=== PATIENT | male | born 1965 | race Caucasian/White ===

== ENCOUNTER 2020-04-28 15:04 | Outpatient (CLI) | payer MEDICARE, SELFPAY ==
--- NOTE | 2020-04-28 15:09 | XR_ITS ---
WS: [id number] LUMBAR SPINE FLEXION AND EXTENSION TECHNIQUE: 3 views of the lumbar spine: Lateral neutral, flexion, and extension views. CLINICAL INFORMATION: LOW BACK PAIN, COMMENT ON PRESENCE OR ABSENCE OF SPINAL INST COMPARISON: None. FINDINGS: Normal lumbar alignment on the neutral view. No instability on the flexion and extension views. Disc space narrowing worse L5-S1. Moderate facet a rthropathy L5-S1. Aortic calcification. No spinal hardware. XR/XR lumbar spine f/e only [id number] IMPRESSION: No instability on flexion-extension
== END 2020-04-28 15:05 | disposition home or self-care (01) ==
LOC: RADWPI 15:07
PROVIDERS: Family Provider Nurse Practitioner Family; PCP Nurse Practitioner Family; Visit Provider Nurse Practitioner
DX: M54.5 Low back pain (principal)
CPT/HCPCS: 72120

== ENCOUNTER 2020-04-30 14:54 | Outpatient (CLI) | payer MEDICARE, SELFPAY ==
--- NOTE | 2020-04-30 14:58 | MR_ITS ---
WS: [id number] MRI LUMBAR SPINE NONCONTRAST TECHNIQUE: Sagittal T1, T2 and STIR imaging. Axial T1 and T2 imaging. CLINICAL INFORMATION: LOW BACK PAIN COMPARISON: None. FINDINGS: Mild lumbar curve. No acute compression. No high-grade central canal stenosis. Mild disc bulging L4-L 5 and L5-S1. L1-L2: No significant disc bulging. Mild facet arthropathy. L2-L3: No significant disc bulging. Mild facet arthropathy. L3-L4: Minimal annular bulging. Mild facet arthropathy. Spinal canal and foramen are patent. L4-L5: Shallow broad-based left pericentral protrusion with a small annular fissure. Narrowing of the subarticular recess bilaterally left greater than right. Impingement traversing left L5 nerve root. Mild right and no significant left foraminal narrowing. Mild central canal stenosis. Moderate facet a rthropathy. L5-S1: Mild annular bulging with slight effacement of the ventral thecal sac. Mild facet arthropathy. Spinal canal and foramen are patent. Partially visualized T2 hyperintense lesion left kidney may represent renal cysts partially evaluated . This measures 1.6 cm can be followed up with ultrasound. Additional smaller bilateral presumed carola l cysts. MR/MR lumbar spine wo con* [id number] IMPRESSION: 1. Mild lumbar curve. No acute compression. No high-grade central canal stenos is. 2. Shallow left pericentral protrusion L4-5 with mild central canal stenosis a nd impingement traversing left L5 nerve root. Recommend correlation for left L5 nerve root symptoms. 3. Mild annular bulging L5-S1 with slight effacement of ventral thecal sac. No significant nerve root impingement. 4. Mild right L4-5 foraminal narrowing. 5. Moderate facet arthropathy L3-L5. 6. 1.6 cm left renal lesion may represent renal cysts but indeterminant and ca n be followed up with ultrasound. Additional smaller bilateral renal cysts.
== END 2020-04-30 14:55 | disposition home or self-care (01) ==
LOC: RADWPI 14:57
PROVIDERS: Family Provider Nurse Practitioner Family; PCP Nurse Practitioner Family; Visit Provider Nurse Practitioner
DX: N28.9 Disorder of kidney and ureter, unspecified (principal); M47.816 Spondylosis without myelopathy or radiculopathy, lumbar region; M48.061 Spinal stenosis, lumbar region without neurogenic claudication; M51.26 Other intervertebral disc displacement, lumbar region
CPT/HCPCS: 72148

== ENCOUNTER 2020-05-26 14:43 | Outpatient (CLI) | payer MEDICARE, SELFPAY ==
--- NOTE | 2020-05-26 14:49 | US_ITS ---
WS: [id number] RENAL ULTRASOUND HISTORY: CYST OF KIDNEY COMPARISON: CT 12/16/2017 TECHNIQUE: 2-D and color Doppler imaging of the kidney submitted. Right kidney: 11.8 cm x 5.0 cm x 5.4 cm. Normal echogenicity with no hydronephrosis or mass. Left kidney: 11.0 cm x 5.1 cm x 5.8 cm. Small cysts in the upper and lower poles of the LEFT kidney. The largest measures 1.3 cm in the super ior kidney. These were both identified on the prior CT of 12/16/2017. No solid mass. Aorta: Normal. Urinary Bladder: Normal urinary bladder. US/US renal BI* [id number] IMPRESSION: 1. No solid mass or obstruction. 2. Long-term stability of cortical cysts LEFT kidney.
== END 2020-05-26 14:44 | disposition home or self-care (01) ==
LOC: RAD 14:47
PROVIDERS: PCP Nurse Practitioner Family; Visit Provider Anesthesiology Pain Medicine
DX: N28.1 Cyst of kidney, acquired (principal)
CPT/HCPCS: 76770

== ENCOUNTER 2022-12-22 13:42 | Emergency (ER) | payer MEDICARE, SELFPAY ==
[2022-12-22 13:58] VITALS: BP 117/82; PULSE 122; TEMP 35.8; O2SAT 96; BMI 27.0
--- NOTE | 2022-12-22 14:42 | CT_ITS ---
WS: [id number] CT CERVICAL SPINE HISTORY: trauma TECHNIQUE: Contiguous 2.5 mm axial imaging performed through the entire cervical spine. Sagittal and coronal reformats also performed. All CT scans at [facility] use at least one of these dose o ptimization techniques: automated exposure control; mA and/or kV adjustment per patient size (include s targeted exams where dose is matched to clinical indication); or iterative reconstruction. DLP: 207.67 mGy.cm COMPARISON: None available. Motion artifact in the lower cervical spine and upper thoracic spine. No fractures. Disc spaces are moderately narrowed throughout the cervical spine with endplate osteoph ytes. The lateral masses of C1 and C2 are aligned. Odontoid is intact. C2-C3: Small central disc protrusion. No stenosis. C3-C4: Mild facet arthritis and hypertrophic osteophytes. Moderate RIGHT and mild LEFT foraminal sten osis. C4-C5: Osteophytic ridging encroaching upon the ventral thecal sac. Moderate RIGHT foraminal stenosis . C5-C6: Moderate osteophytic ridging around the vertebral bodies. Moderate RIGHT and mild LEFT foramin al stenosis. Small central disc protrusion. C6-C7: Mild osteophytic ridging. Moderate to severe bilateral foraminal stenosis and mild central deniz nosis. C7-T1: Motion artifact. Motion artifact at the lung apices. Mild apical pleural thickening. CT/CT cervical spin wo con* [id number] IMPRESSION: 1. No acute cervical spine fracture or subluxation. 2. Facet joint arthritis and osteophytic vertebral body ridging.
--- NOTE | 2022-12-22 14:42 | XR_ITS ---
WS: [id number] Left shoulder, 3 views, 12/22/2022 Clinical Data: fall Comparison: None. Findings: No fractures or dislocations are seen. The AC joint is normal. The adjacent left clavicle, left scapu la and ribs are normal. The soft tissues are unremarkable. XR/XR shoulder LT min 2V* [id number] Impression: Negative left shoulder.
--- NOTE | 2022-12-22 14:42 | CT_ITS ---
WS: [id number] CT HEAD NONCONTRAST HISTORY: trauma TECHNIQUE: Contiguous axial imaging performed through the brain in 2.5 mm imaging. Bone and soft tiss ue windows. Sagittal and coronal reformats reviewed. All CT scans at [facility] use at least one of these dose optimization techniques: automated exposure control; mA and/or kV adjustment per pa tient size (includes targeted exams where dose is matched to clinical indication); or iterative recon struction. DLP: 1122.18 mGy.cm COMPARISON: None available. No acute intracranial hemorrhage, midline shift or mass effect. Mild atrophy and mild small vessel ischemic disease and volume loss. Ventricles: Normal size with no hydrocephalus. No inferior displacement of the cerebellar tonsils. Paranasal sinuses: As visualized are clear. Mastoid air cells: Well pneumatized. Calvarium and scalp: Skull is intact with no soft tissue edema or swelling. CT/CT head wo con* [id number] IMPRESSION: 1. No acute intracranial hemorrhage or edema. 2. Mild atrophy and small vessel ischemic disease.
--- NOTE | 2022-12-22 14:43 | W.ED.ALCOHOL ---
HPI - Alcohol General: Chief Complaint: General Medical Stated Complaint: ETOH ,fall Time Seen by Provider: 12/22/22 13:50 Source: patient and family Mode of arrival: EMS Limitations: other (intoxicated) History of Present Illness: Patient is a 57-year-old male who presents to ED today along with his sister for evaluation following a fall and alcohol intoxication. Sister states they were unable to get a hold of patient over the past 3 days and when they showed up to his house she states he fell getting to the door. He was clearly intoxicated thus sister brought him to the ED for evaluation. MD complaint: alcohol intoxication Last drink: Hours (ago) Chronic alcohol use: Yes Recent trauma: Yes Associated symptoms: Deny abdominal pain Treatments prior to arrival: none Review of Systems Const: Denies: fever(s) Eyes: Denies: change in vision or blurry vision Card: Denies: chest pain Resp: Denies: dyspnea GI: Denies: abdominal pain Musc: Reports: neck pain and joint pain (L shoulder); Denies: back pain, extremity pain, extremity swelling, joint swelling or joint redness Skin/Breast: Reports: other (facial abrasions) Neuro: Denies: headache(s), numbness in extremities, weakness in extremities, sensory changes, difficulty walking, dizziness or confusion Physical Exam Const: COMMON NORMALS: average body habitus, patient oriented x3, alert and well nourished GENERAL APPEARANCE: cooperative and odor of alcohol detected ORIENTATION/CONSCIOUSNESS: Yes awake, Yes oriented to person, Yes oriented to place and Yes oriented to time OTHER: intoxicated but answers all questions appropriately HENMT: COMMON NORMALS: normocephalic, atraumatic and Normal external nose present HEAD & SCALP: normal to inspection, normocephalic and atraumatic FACE & SINUS: normal facial exam (apart from some mild facial abrasions) NOSE: Normal external nose present Eye: GENERAL EYE: appearance normal, both eyes and all related structures Neck/C-Spine: COMMON NORMALS: full ROM GENERAL: Yes normal visual inspection CERVICAL SPINE: Yes cervical ROM normal, Yes pain with cervical ROM, Yes Cervical spine tenderness, No step off deformity and No Paracervical muscle tenderness Chest: COMMONS NORMALS: normal inspection of the chest and normal palpation of entire chest wall Resp: COMMON NORMALS: normal respiratory effort and clear to auscultation bilaterally AUSCULTATION: clear to auscultation bilaterally Cardio: COMMON NORMALS: regular rate and regular rhythm RATE: regular rate RHYTHM: regular rhythm GI: COMMON NORMALS: Normal to inspection, nondistended, normoactive bowel sounds present, Soft to palpation and non-tender PALPATION: Yes Soft to palpation Back/Pelvis: COMMON NORMALS: thoracic and lumbar spine normal to inspection, no thoracic nor lumbar tenderness and thoraco-lumbar ROM normal Extremity: COMMON NORMALS: normal to inspection and full ROM GENERAL: Yes normal exam except as noted LEFT UPPER EXTREMITY: Yes shoulder joint Left shoulder joint: Yes palpation (TTP posterior shoulder), Yes ROM (normal) and Yes neurovascular exam (normal) Neuro: KAVEH COMA SCALE: document GCS findings Kaveh coma scale eye opening: Spontaneous Beulah coma scale verbal response: Orientated Beulah coma scale motor response: Obey commands Kaveh coma scale total score: 15 COMMON NORMALS: patient oriented x3, CN's II-XII intact bilaterally, moves all extremities, no focal motor deficits, no sensory deficits noted and gait normal SENSORIUM/ORIENTATION: Yes alert, Yes oriented to person, Yes oriented to place and Yes oriented to time Skin: NARRATIVE SKIN EXAM: facial abrasions; otherwise normal skin exam Course Vital Signs: Vital signs: Vital Signs Temperature 96.4 F L 12/22/22 13:58 Pulse Rate 122 H 12/22/22 13:58 Blood Pressure 117/82 12/22/22 13:58 Pulse Oximetry 96 12/22/22 13:58 Oxygen Delivery Me thod 12/22/22 13:58 MDM - Alcohol Medical Decision Making CT head/cervical spine negative. Shoulder XR negative. Patient wants to go home at this time. Labs still pending. Ultimately I have no reason to keep him here against his will. Sister is with him and will provide him a ride home. Lab Data 12/22/22 15:57 12/22/22 15:57 Radiology Impressions Cervical Spine CT 12/22/22 14:42 IMPRESSION: 1. No acute cervical spine fracture or subluxation. 2. Facet joint arthritis and osteophytic vertebral body ridging. Head CT 12/22/22 14:42 IMPRESSION: 1. No acute intracranial hemorrhage or edema. 2. Mild atrophy and small vessel ischemic disease. Shoulder X-Ray 12/22/22 14:42 Impression: Negative left shoulder. Laboratory Results WBC 12.9 10^3/uL (4.0-10.0) H 12/22/22 15:57 RBC 5.88 10^6/uL (4.1-5.3) H 12/22/22 15:57 Hgb 18.7 g/dL (11.7-16.6) H 12/22/22 15:57 Hct 54.2 % (42.0-52.0) H 12/22/22 15:57 MCV 92.2 fl (80-94) 12/22/22 15:57 MCH 31.8 pg (28.0-34.0) 12/22/22 15:57 MCHC 34.5 g/dL (30.0-36.0) 12/22/22 15:57 RDW 12.8 % (12.1-15.1) 12/22/22 15:57 Plt Count 195 10^3/cmm (130-400) 12/22/22 15:57 MPV 9.6 fL (7.4-10.4) 12/22/22 15:57 Neut % (Auto) 81.0 % 12/22/22 15:57 Lymph % (Auto) 15.2 % 12/22/22 15:57 [place] % (Auto) 2.9 % 12/22/22 15:57 Eos % (Auto) 0.0 % 12/22/22 15:57 Baso % (Auto) 0.5 % 12/22/22 15:57 Neut # (Auto) 10.48 10^3/uL (1.8-7.7) H 12/22/22 15:57 Lymph # (Auto) 2.0 10^3/uL (0.8-4.8) 12/22/22 15:57 [place] # (Auto) 0.4 10^3/uL (0.2-0.9) 12/22/22 15:57 Eos # (Auto) 0.0 10^3/uL (0.0-0.8) 12/22/22 15:57 Baso # (Auto) 0.1 10^3/uL (0.0-0.1) 12/22/22 15:57 Nucleated RBC % (auto) 0 % 12/22/22 15:57 Nucleated RBCs # 0.0 /100WBC 12/22/22 15:57 Discharge Plan Discharge Patient Disposition: Home Clinical Impression: Chronic alcohol abuse Abrasion of face Qualifiers: Encounter type: initial encounter Qualified Code(s): S00.81XA - Abrasion of other part of head, initial encounter Acute alcohol intoxication Qualifiers: Complication of substance-induced condition: uncomplicated Qualified Code(s): F10.920 - Alcohol use, unspecified with intoxication, uncomplicated Condition: Stable Prescriptions: No Action Aspir-81 81 mg Tablet,Delayed Release (Dr/Ec) 81 mg PO BEDTIME amitriptyline 50 mg tablet 50 mg PO BEDTIME Tylenol Ex Str Rapid Release 500 mg Tablet 1,000 mg PO QAM omeprazole 20 mg capsule,delayed release(DR/EC) 20 mg PO DAILY PRN (Reason: Acid Reflux) albuterol sulfate 90 mcg/actuation HFA aerosol inhaler 2 puff INHALATION Q4H PRN (Reason: Shortness Of Breath) Symbicort 160-4.5 mcg/actuation HFA aerosol inhaler 2 puff INHALATION BID Discharge Orders: Discharge ED (Routine); Ordered 12/22/22 Ordered By: Zoie Mims Referrals: Jillian Worthington FNP [Primary Care Provider] - Coding Level of Care Code ED [employer]
--- NOTE | 2022-12-22 14:48 | PC.NURSE ---
pt is verbalizing SI. pt states I want to just and be I've been trying the last 2 weeks and it's not working I'd like to just blow my brains out sometimes . talked to charge nurse, Anya Malone and pt is being moved to pickard bed where he can be monitored by transcription coordinator.
--- NOTE | 2022-12-22 15:00 | PC.NURSE ---
pt verbalized to me SI. pt stated If I could I would blow my brains out but I cannot
[2022-12-22 16:12] LABS: Basophils # 0.1 10^3/uL (0.0-0.1); Basophils % 0.5 %; Hematocrit 54.2 % (42.0-52.0); Hemoglobin 18.7 g/dL (11.7-16.6); Lymphocytes % 15.2 %; Mean Corpuscular HGB Conc 34.5 g/dL (30.0-36.0); Mean Corpuscular Hemoglobin 31.8 pg (28.0-34.0); Mean Corpuscular Volume 92.2 fl (80-94); Mean Platelet Volume 9.6 fL (7.4-10.4); Monocytes # 0.4 10^3/uL (0.2-0.9); Monocytes % 2.9 %; Neutrophils # 10.48 10^3/uL (1.8-7.7); Nucleated Red Blood Cells % 0 %; Platelet Count 195 10^3/cmm (130-400); Red Blood Count 5.88 10^6/uL (4.1-5.3); Red Cell Distribution Width 12.8 % (12.1-15.1); White Blood Count 12.9 10^3/uL (4.0-10.0)
[2022-12-22 16:35] VITALS: BP 149/102; PULSE 106; RESP 18; O2SAT 97
[2022-12-22 16:50] LABS: Alanine Aminotransferase 61 U/L (0-41); Albumin Level 3.9 g/dL (3.5-5.2); Alkaline Phosphatase 133 U/L (40-130); Anion Gap 24.8 (5-19); Aspartate Amino Transferase 119 U/L (0-40); Blood Urea Nitrogen 24 mg/dL (6-20); Calcium 8.4 mg/dL (8.5-10.5); Carbon Dioxide 21 mmol/L (22-29); Chloride 97 mmol/L (98-107); Creatine Phosphokinase 258 U/L (39-308); Globulin 2.9 g/dL (1.3-4.6); Glomerular Filtration Rate 99.3 mL/min (90-130); Glucose 96 mg/dL (65-115); Osmolality Calculated 292 mOsm/kg (285-295); Potassium 3.8 mmol/L (3.5-5.1); Sodium 139 mmol/L (136-145); Total Bilirubin 0.7 mg/dL (0.15-1.2); Total Protein 6.8 g/dL (6.6-8.7)
[2022-12-22 16:51] LABS: Acetaminophen < 5.0 ug/mL (10-30); Salicylate < 0.3 mg/dL (3-10)
[2022-12-22 16:52] LABS: Alcohol Level 341 mg/dL (0-10)
--- NOTE | 2022-12-22 16:53 | PC.NURSE ---
POST DISCHARGE LAB CALLED WITH A CRITICAL ETOH LEVEL OF 341. PROVIDER NOTIFIED. PT WAS ALERT AND ORIENTED AND ABLE TO WALK UNASSISTED UPON DC.
[2022-12-22 17:40] LABS: CKMB 2.9 ng/mL (0-10.4)
== END 2022-12-22 16:35 | disposition home or self-care (01) ==
PROVIDERS: Emergency Provider Physician Assistant; PCP Nurse Practitioner Family
DX: S00.81XA Abrasion of other part of head, initial encounter (principal); F10.920 Alcohol use, unspecified with intoxication, uncomplicated; W19.XXXA Unspecified fall, initial encounter; Y90.8 Blood alcohol level of 240 mg/100 ml or more
CPT/HCPCS: 36415; 70450; 72125; 73030; 80053; 80307; 82550; 82553; 85025; 99285

== ENCOUNTER → 2024-12-11 13:23 | Outpatient (BNVA) | payer MEDICARE, SELFPAY | PROVIDERS: PCP Nurse Practitioner Family; Visit Provider Internal Medicine Cardiovascular Disease | DX: R07.9 Chest pain, unspecified (principal); R94.31 Abnormal electrocardiogram [ECG] [EKG] | CPT/HCPCS: 93005 ==

== ENCOUNTER 2025-01-04 05:58 | Outpatient (CLI) | payer MEDICARE, SELFPAY ==
--- NOTE | 2025-01-04 | ECG_ITS ---
[facility] Test Date: 2025-01-04 Pat Name: Josue Soliman Department: Room: Gender: Male Gamer: : 1965 Requested By: Sarah Carrion Order Number: [id number] Urbano MD: Joe Zuleta M.D. Interpretive Statements LEXISCAN SESTAMIBI STRESS TEST Procedure: At the baseline, the blood pressure was 164/74 mmHg with a heart rate of 89 bpm. The electrocardiogram showed normal sinus rhythm, normal axis with normal ST and T's and frequent PVCs. The Lexiscan was infused over a period of 20 seconds. A total of 0.4 mg of Lexiscan was infused. The stress phase was continued for a total of 5 minutes. Heart rate was at the end of stress phase was 103 bpm and a blood pressure of 145/83 mmHg. The EKG at the peak infusion revealed sinus tachycardia with no significant ST-T wave changes. Sestamibi was injected 20 seconds after the Lexiscan infusion. Blood pressure at the end of recovery phase was 156/85 mmHg with a heart rate of 101 bpm. Conclusion: 1. Normal EKG response to Lexiscan infusion 2. No Lexiscan induced chest pain or cardiac arrhythmia. 3. Normal blood pressure and heart rate response. 4. Sestamibi/sestamibi perfusion scan pending; see separate report. Electronically Signed On 01-23-2025 12:17:33 CDT by Joe Zuleta M.D. [email or web address]
--- NOTE | 2025-01-04 06:15 | USCV_ITS ---
Josue Soliman Age: 59 Gender: M : 1965 Exam Date: 01/04/2025 06:25 Ordering Phys: Sarah Carrion MD ([email or web address]) Technologist: Bassam Medrano [place] [facility] [place] Indication: sob BP: 117 / 82 HR: 78 Rhythm: Sinus Technical Quality: Adequate MEASUREMENTS (Male / Female) Normal Values 2D ECHO LV Diastolic Diameter PLAX 3.5 cm 4.2 - 5.9 / 3.9 - 5.3 cm IVS Diastolic Thickness 1.5 cm 0.6 - 1.0 / 0.6 - 0.9 cm IVS Systolic Thickness 1.5 cm LVPW Diastolic Thickness 1.8 cm 0.6 - 1.0 / 0.6 - 0.9 cm LVPW Systolic Thickness 2.0 cm LVOT Diameter 2.3 cm LV Ejection Fraction 2D Teich 43.1 % LV Ejection Fraction MOD 4C 55.9 % LV Ejection Fraction MOD 2C 50.1 % LV Ejection Fraction 2C AL 50.8 % LA Diameter 3.1 cm RA Systolic Volume 4C AL 32.8 ml RA Systolic Volume 4C MOD 34.1 ml LA Sys Volume AL 33.3 cm cubed LA Sys Volume Index AL 15.1 cm cubed/m squared Aorta at Sinotubular Diameter 2.9 cm IVC Diameter 2.0 cm M-MODE LA Ao Ratio MM 0.9 AV Cusp Separation MM 1.4 cm DOPPLER AV Peak Velocity 118.3 cm/s LVOT Peak Velocity 75.0 cm/s AV Area Cont Eq vti 2.6 cm squared AV Area Cont Eq pk 2.6 cm squared MV Peak Velocity 73.0 cm/s MV Area PHT 3.0 cm squared Mitral E to A Ratio 0.6 TV Peak Velocity 180.0 cm/s TR Peak Velocity 184.0 cm/s TR Peak Gradient 13.5 mmHg TR Mean Velocity 163.0 cm/s TR Mean Gradient 10.9 mmHg TR Velocity Time Integral 44.1 cm PV Peak Velocity 117.0 cm/s RV Ejection Time 0.3 s FINDINGS Left Ventricle Mild left ventricle concentric hypertrophy. There is mild global hypokinesis. Estimated LVEF is mildly reduced 45 to 50%. Grade 1 diastolic dysfunction. Right Ventricle Normal right ventricular size and systolic function. Right Atrium Normal right atrial size. Left Atrium Normal left atrial size. Mitral Valve Mildly thickened mitral valve. Trace mitral valve regurgitation. Aortic Valve Mildly thickened aortic valve. No aortic valve stenosis. Tricuspid Valve Structurally normal tricuspid valve. Trace tricuspid valve regurgitation. Normal TVPG gradient 15 mmHg. Pulmonic Valve Structurally normal pulmonic valve. Trace pulmonary valve regurgitation. Pericardium No pericardial effusion. Aorta Normal size aortic root and proximal ascending aorta. IVC Mildly dilated IVC. Normal respiratory change of inferior vena cava CONCLUSIONS Mild left ventricular concentric LVH. Estimated LVEF is mildly reduced, 40 to 45%. Mild global hypokinesis. No significant valvular abnormality noted. Normal right heart and pulmonary pressures. Quirino Lam MD (Electronically Signed) Final Date: 04 January 2025 17:32 S
[2025-01-04 07:27] VITALS: BMI 27.8
--- NOTE | 2025-01-04 07:28 | NMCV_ITS ---
NM radhika perf SPECT r/s* [id number] Josue Soliman Age: 59 Gender: M : 1965 Exam Date: 01/04/2025 07:54 Ordering Phys: Sarah Carrion MD ([email or web address]) Technologist: RHEA Proctor Exam Location: [facility] Indications: cp STRESS TEST [facility] IMAGE PROTOCOL Rest/Stress 1 Lexiscan Day Radiopharmaceutical Dose (mCi) Administration Site Administered by Rest: Tc-99m 10.6 IV RHEA Proctor Sestamibi Stress:Tc-99m 33 IV Narda Cantu STOCK SELECTOR Sestamibi Rest: 04-Jan-2025 60 Discovery 630 Stress: 04-Jan-2025 30 Discovery 630 0.4mg Lexiscan. Images obtained in supine and prone position. SPECT RESULTS Technical Quality: Good Raw Data Analysis: Normal Image Corrections: No attenuation or motion correction applied Summed Stress Score: 2 Summed Rest Score: 2 Summed Difference Score: 1 PERFUSION FINDINGS There is reduced radiotracer uptake seen in the inferior wall. No reversibility is seen. On prone imaging the defect resolves. This is consistent with attenuation artifact in the inferior wall. FUNCTIONAL RESULTS (calculated via Gated SPECT) Stress Image LV EF (%): 57 Stress EDV (mL):106 TID: 1.03 Stress ESV (mL):46 FUNCTIONAL FINDINGS: There is normal left ventricular systolic function. IMPRESSIONS 1. Attenuation artifact seen in the inferior wall. No evidence of ischemia 2. LV systolic function is normal Joe Zuleta MD (Electronically Signed) Final Date: 07 January 2025 22:10 S
[2025-01-04] MEDS: regadenoson 0.4 Mg/5 ml Syringe IVP (08:24)
[2025-01-04 08:38] VITALS: BP 156/85; PULSE 100
== END 2025-01-04 05:59 | disposition home or self-care (01) ==
LOC: RAD 06:13 → CDL 07:27
PROVIDERS: PCP Nurse Practitioner Family; Visit Provider Internal Medicine Cardiovascular Disease
DX: R06.02 Shortness of breath (principal); R07.9 Chest pain, unspecified; R93.1 Abnormal findings on diagnostic imaging of heart and coronary circulation; I42.2 Other hypertrophic cardiomyopathy; I51.9 Heart disease, unspecified; I35.8 Other nonrheumatic aortic valve disorders
CPT/HCPCS: 36415; 78452; 93017; 93306; 96374; A9500; J2785

== ENCOUNTER 2025-01-30 05:52 | Outpatient (CLI) | payer MEDICARE, SELFPAY ==
[2025-01-30] VITALS (17 sets, daily range): BP systolic 144–165; BP diastolic 83–109; PULSE 75–92; RESP 16–24; TEMP 36.5; O2SAT 93–97; BMI 28.8
[2025-01-30] MEDS: diphenhydrAMINE 50 mg Capsule PO (06:15)
[2025-01-30 06:24] LABS: Basophils # 0.1 10^3/uL (0.0-0.1); Basophils % 0.8 %; Eosinophils # 0.2 10^3/uL (0.0-0.8); Hematocrit 47.5 % (37-53); Lymphocytes # 2.7 10^3/uL (0.8-4.8); Lymphocytes % 28.1 %; Mean Corpuscular HGB Conc 33.9 g/dL (30-55); Mean Corpuscular Hemoglobin 31.6 pg (27-33); Mean Corpuscular Volume 93.1 fl (82-101); Mean Platelet Volume 10.1 fL (7.4-10.4); Monocytes # 0.7 10^3/uL (0.2-0.9); Monocytes % 7.4 %; Neutrophils # 5.76 10^3/uL (1.8-7.7); Neutrophils % 61.3 %; Nucleated Red Blood Cells % 0 %; Platelet Count 242 10^3/cmm (157-399); Red Cell Distribution Width 12.2 % (12.1-15.1); White Blood Count 9.42 10^3/uL (3.29-11.43)
[2025-01-30 06:33] LABS: Blood Urea Nitrogen 8 mg/dL (8-23); Calcium 9.2 mg/dL (8.5-10.5); Carbon Dioxide 24 mmol/L (22-29); Chloride 103 mmol/L (98-107); Glomerular Filtration Rate 98.6 mL/min (90-130); Glucose 99 mg/dL (65-115); Osmolality Calculated 286 mOsm/kg (285-295); Sodium 139 mmol/L (136-145)
--- NOTE | 2025-01-30 07:00 | XACV_ITS ---
Ht: 180 cm Wt: 94 kg BSA: 2.19 m2 Gender: Male : 1965 Any Known Allergies: Other Exam Priority: Routine Indication(s): - Chest Pain in spite of Medical Tx Procedure(s): Procedure Description: Diagnostic procedure Procedure Description: Left Heart Catheterization Procedure Description: Left ventriculography Procedure Description: Coronary Angiography Murali SANCHEZ; Diagnostic Cath Status: Elective Diagnostic Findings * Left Main has no disease. * Mid Left Anterior Descending to Distal Left Anterior Descending: luminal irregularities 20% stenosis, CARA: 3 flow. * Proximal Right Coronary Artery: moderate 50% stenosis, CARA: 3 flow. * Proximal Right Coronary Artery: mild 40% stenosis, CARA: 3 flow. * Mid Circumflex: moderate 50% stenosis, CARA: 3 flow. * Coronary angiography shows right dominance. Conclusions 1. There is moderate coronary artery disease with three vessel disease. 2. Mild left ventricular systolic dysfunction. Ejection fraction of 45%. Recommendations * Continue current medical management and risk factor modification. Diagnostic RX Recommendation: medical therapy and/or counseling Ventriculography Ejection Fraction: 45.0 % Pressures Phase:Rest AO : / ( 9 ) @ 9:22:00 AM 126 / 99 ( 108 ) @ 9:34:00 AM / ( 0 ) @ 9:43:00 AM 155 / 80 ( 116 ) @ 9:47:00 AM 155 / 80 ( 112 ) @ 9:47:00 AM LV : 159 / -5 / 13 @ 9:46:00 AM 172 / -10 / 12 @ 9:47:00 AM Valves Phase:DefaultPhase AV : 27.0 @ 8:54:59 AM AV Mean Gradient: 20.0 @ 8:54:59 AM Clinical Evaluation EBL: 5mL-10mL Procedural Details Procedure Consent Obtained. Admit Source: Out Patient. Current Diagnosis : Chest Pain. Pre-Procedure Time Out. Identified patient by full name and date of as verbalized by the patient/guarantor. Does the consent match the physician's order: Yes. Accurate & Complete Informed Consent: Yes. Inpatient/Outpatient History & Physical on Chart: Yes. If H&P is completed, is and addenduem needed: No; If yes, is the addendum complete: N/A. Visualize and Verify Site with Patient/Guarantor: N/A. Relevant Radiology Images available: N/A. The risks, benefits, and alternatives of sedation and/or procedure were discussed by physician. The patient agrees to continue. Procedure started. [facility] Clinical Fraility Score: 3: Managing Well. Manager Molecular Indications: LV Dysfunction. Chest Pain Symptom Assessment: Typical Angina Symptoms. Cardiovascular Instability: No. Correct patient, site and procedure confirmed by cath team. Current diagnosis: Chest Pain, New onset heart failure; LV dysfunction. PERRLA. Strong, equal hand nuclear medicine supervisor bilaterally. Lungs clear x 5 lobes. IV Site on Arrival: 20 gauge in the left anticubital. IV Fluids: 0.9% NaCl at KVO. 0 mL infused prior to laborer car barn. Pre Procedural Pulses: bilateral posterior tibial was 3+. Pre Procedural Pulses: bilateral dorsalis pedis was 3+. Pre Procedural Pulses: bilateral radial was 3+. Oxygen started at 3liters/min via nasal canula. right groin was prepped with chloroprep then draped in the usual sterile fashion. right radial was prepped with chloroprep then draped in the usual sterile fashion. Physician notified. Baseline sample Acquired. HR: 63 BPM. Physician arrived. Physician scrubbed in. Family updated by MD prior to the start of the procedure. Immediate Pre-Procedure Time Out. Correct Patient: Yes; Correct Procedure: Yes; Correct Site: Yes; Correct Patient Position: Yes; Correct Supplies: Yes; Dried Flammable Prep: Yes; Blood Products Available: N/A;. Lidocaine 1% infiltrated to the right radial. A 5 maltese Francisco catheter in over wire. Multiple views taken of left coronary artery. Catheter redirected to the RCA. Multiple views taken of right coronary artery. Physician review of films. Catheter removed over the exchange wire. A 5 maltese Angled Pig catheter in over wire. EDP Sample taken: LV 159/-6,13; HR: 84 BPM; SpO2: 96%. LV gram performed in WISE @ 10 mL/second for a total of 30 mL. Patient EF: Abnormal. EDP Sample taken: LV 172/-11,12; HR: 85 BPM; SpO2: 96%. Pullback taken: LV Off; AO 155/80(116); Mean: 20mmHg, Peak to Peak: 27mmHg, SEP: 20sec/min; HR: 72 BPM; SpO2: 96%. [id number]. Contrast type used: Visipaque 320 mgI/mL, 100 mL bottle. Catheter removed over the exchange wire. Physician review of films. Post-op diagnosis: Non obstructive CAD; Mederatly depressed LV ejection fraction. A TR Band was successful obtaining hemostatsis at the Right Radial artery insertion site. TR band placed. Hemostasis obtained. Post Procedure: Pulses reassessed and unchanged. No VTE prophylaxis required. Medication's Wasted: Lidocaine 1% = 18 ml , Nitro = 49.8 mg , Heparin = 1000 units , Fentanyl- 25 mcg. Total IV fluids: 30 mL. Fluoro: 4:01. Complications: None. Estimated blood loss: 5mL-10mL. Responsiveness - Normal response to verbal stimuli; alert and oriented, PERRLA. Airway - Unaffected, no intervention required; spontaneous ventilation. Circulation: W/N/L, pulses unchanged. Nausea/Vomiting: No. Procedure completed. Vital chart was stopped. Patient transferred by bed to CPRU. Access Site Site: Right Radial artery Sheath Size: 6 Fr Hemostasis Method: TR Band Hemostasis Success: Successful Procedure Medications Start: 8:18 AM Stop: 8:18 AM Medication: Versed Amount: 1 mg Route: I.V. Start: 8:18 AM Stop: 8:18 AM Medication: Fentanyl Amount: 50 mcg Route: I.V. Start: 8:25 AM Stop: 8:25 AM Medication: Versed Amount: 1 mg Route: I.V. Start: 8:31 AM Stop: 8:31 AM Medication: Fentanyl Amount: 25 mcg Route: I.V. Start: 8:33 AM Stop: 8:33 AM Medication: Nitrogylcerin Amount: 200 mcg Route: I.A. Start: 8:33 AM Stop: 8:33 AM Medication: Heparin Amount: 5000 units Route: I.V. I, the attending physician, have reviewed and verified all procedure medications. Yes, all medications given per verbal order History/Risk Factors Hypertension: Yes Dyslipidemia: Yes Peripheral Arterial Disease (PAD): No Myocardial Infarction (GA): No Obesity: No Renal Disease: No Tobacco Use: Current/Recent(w/in 1 year) Prior Interventions PCI: No CABG: No Valve Surgery: No Report Signatures Finalized by Sarah Carrion MD on 01/30/2025 10:52 AM
--- NOTE | 2025-01-30 08:18 | W.PM.OPSFHP ---
Same Day Surgery H&P Indication for Procedure/HPI DATE OF PROCEDURE: January 30, 2025 CHIEF COMPLAINT/INDICATIONFOR SURGICAL PROCEDURE: New onset of heart failure LV dysfunction Worsening of chest pain along with shortness of breath increasing frequency and duration on daily basis for the last couple of months despite of optimization of medicine PREOP DIAGNOSIS: CHF, LV dysfunction, possible unstable angina PLANNED PROCEDURE: Operation Date: 01/30/25 07:00 Proposed Procedures p Cardiac Catheterization [facility] w/wo LV & [place] [address], R93.1, R07.9(Left) - Sarah Carrion MD 59-year-old male recent medical history significant for worsening of LV function, chest pain on daily basis which has increased in frequency and duration, patient had negative stress test in the past however his symptoms has worsened, he has a history of smoking hypertension hyperlipidemia with enough risk factors to suspect coronary artery disease since his symptoms are worsened will proceed with left heart cath. Medications/Allergies* Home Medications ?Medication ?Instructions ?Recorded ?Confirmed ?Type acetaminophen 500 mg tablet 1,000 mg PO QAM 12/22/22 01/29/25 History aspirin 81 mg tablet,delayed 81 mg PO BEDTIME 12/22/22 01/29/25 History release budesonide-formoterol HFA 160 2 puff inhalation BID 12/22/22 01/29/25 History mcg-4.5 mcg/actuation aerosol inhaler (Symbicort) omeprazole 20 mg capsule,delayed 20 mg PO DAILY PRN Acid Reflux 12/22/22 01/29/25 History release nitroglycerin 0.4 mg sublingual 0.4 mg sublingual Q5M PRN Chest 12/11/24 01/29/25 History tablet Pain Allergies/Adverse Reactions Allergy/AdvReac Type Severity Reaction Status Date / Time carisoprodol (From [facility]) Allergy Mild ALGY-Rash Verified 12/11/24 13:49 Current Medications: Generic Name Dose Route Start Last Admin Trade Name Freq PRN Reason Stop Dose Admin Sodium Chloride 1,000 mls @ 50 mls/hr 01/30/25 06:00 01/30/25 06:24 Sodium Chloride 0.9% IV 01/31/25 01:59 Not Given .Q20H ONE Pertinent History/Comorbid Conditions* Medical History (Updated 01/15/25 @ 08:18 by Sarah Carrion MD) Hypertension Family History (Updated 12/11/24 @ 08:37 by Tri Mendoza LPN) Breast cancer Mother Cancer Father Social History Smoking and tobacco/nicotine status: current every day tobacco/nicotine user Alcohol intake: current Substance/Drug Use: current Pertinent Exam Findings alert, oriented x 3, clear to auscultation bilaterally, regular rate & rhythm, operative site marked and procedure specific exam findings Conscious Sedation Assessment PATIENT ASSESSED PRIOR TO SEDATION, WITH NO CHANGE NOTED: Yes AIRWAY EVAL/ANESTHESIA PLAN: ASA II, Risks, benefits & alternatives of sedation and/or procedure discussed and Patient agrees to continue as planned Recommendations Surgery/Procedure today Other Plans: Patient has been explained all risk-benefit and alternative for the procedure. Patient understand 2% risk of stroke major bleed, patient understand 6% risk of minor bleeding oozing infection hematoma vascular or cardiac surgery. He would like to proceed with it. Coding Level of Care Code Acute Code for Ck Fwsudhakar
--- NOTE | 2025-01-30 12:28 | PC.NURSE ---
TR band Removal Started releasing air from Right Radial TR band at 1000. 1-3ml released every 5-15min until band deflated. Band deflated at 1100. Clean band aid applied over site. Site asymptomatic. No bleeding or hematoma noted. Right radial pulse palpable.
== END 2025-01-30 12:30 | disposition home or self-care (01) ==
PROVIDERS: PCP Family Medicine; Visit Provider Internal Medicine Cardiovascular Disease
DX: I25.10 Atherosclerotic heart disease of native coronary artery without angina pectoris (principal); I51.81 Takotsubo syndrome; K21.9 Gastro-esophageal reflux disease without esophagitis; I10 Essential (primary) hypertension; E78.5 Hyperlipidemia, unspecified; F17.200 Nicotine dependence, unspecified, uncomplicated; Z79.82 Long term (current) use of aspirin
CPT/HCPCS: 36415; 80048; 85025; 93458; 96374; 99152; 99153; C1769; C1887; C1894; J1644; J2250; J3010; J3490; J7030; J9999; Q0163; Q9967

== ENCOUNTER → 2025-01-31 12:47 | Outpatient (BNVA) | payer MEDICARE, SELFPAY | PROVIDERS: PCP Family Medicine; Visit Provider Internal Medicine Cardiovascular Disease | DX: R07.9 Chest pain, unspecified (principal); I49.1 Atrial premature depolarization; I49.3 Ventricular premature depolarization; I47.10 Supraventricular tachycardia, unspecified | CPT/HCPCS: 93225 ==

== ENCOUNTER 2025-03-03 16:17 | Emergency (ER) | payer MEDICARE, SELFPAY ==
[2025-03-03 16:19] VITALS: BP 147/97; PULSE 89; RESP 18; TEMP 36.4; O2SAT 96; BMI 27.8
[2025-03-03 16:48] LABS: Basophils # 0.1 10^3/uL (0.0-0.1); Eosinophils # 0.2 10^3/uL (0.0-0.8); Eosinophils % 2.4 %; Hematocrit 52.9 % (37-53); Lymphocytes # 2.9 10^3/uL (0.8-4.8); Lymphocytes % 31.3 %; Mean Corpuscular HGB Conc 33.3 g/dL (30-55); Mean Corpuscular Hemoglobin 31.6 pg (27-33); Monocytes # 0.5 10^3/uL (0.2-0.9); Monocytes % 5.6 %; Neutrophils # 5.44 10^3/uL (1.8-7.7); Neutrophils % 59.3 %; Nucleated Red Blood Cells % 0 %; Platelet Count 228 10^3/cmm (157-399); Red Blood Count 5.57 10^6/uL (3.85-5.65); Red Cell Distribution Width 13.7 % (12.1-15.1); White Blood Count 9.17 10^3/uL (3.29-11.43)
--- NOTE | 2025-03-03 16:55 | PC.NURSE ---
PER DR HERRING, PATIENT IS NOT ON 96 HOUR HOLD.
[2025-03-03 17:04] LABS: Alanine Aminotransferase 21 U/L (0-41); Albumin Level 4.1 g/dL (3.5-5.2); Alkaline Phosphatase 126 U/L (40-130); Anion Gap 18.9 (5-19); Aspartate Amino Transferase 31 U/L (0-40); Blood Urea Nitrogen 18 mg/dL (8-23); Calcium 8.9 mg/dL (8.5-10.5); Carbon Dioxide 19 mmol/L (22-29); Chloride 104 mmol/L (98-107); Creatinine Clr Calc Pharmacy 127.6966; Globulin 3.4 g/dL (1.3-4.6); Glomerular Filtration Rate 114.6 mL/min (90-130); Glucose 102 mg/dL (65-115); Osmolality Calculated 288 mOsm/kg (285-295); Potassium 3.9 mmol/L (3.5-5.1); Sodium 138 mmol/L (136-145); Total Bilirubin 0.4 mg/dL (0.15-1.2); Total Protein 7.5 g/dL (6.6-8.7)
[2025-03-03 17:14] LABS: Acetaminophen < 5.0 ug/mL (10-30); Salicylate < 0.3 mg/dL (3-10)
[2025-03-03 17:15] LABS: Alcohol Level 343 mg/dL (0-10)
[2025-03-03 17:45] LABS: Amphetamines Screen Urine Positive (Negative); Barbiturates Screen Urine Negative (Negative); Benzodiazepines Screen Urine Negative (Negative); Cocaine Screen Urine Negative (Negative); Opiate Screen Urine Negative (Negative); PCP Screen Urine Negative (Negative); THC Screen Urine Negative (Negative)
[2025-03-03 17:48] VITALS: BP 145/60; PULSE 92; O2SAT 96
--- NOTE | 2025-03-03 21:24 | ED.C_ITS ---
HPI - Psych 2 General: Chief Complaint: Psychiatric Symptoms Stated Complaint: mhe Time Seen by Provider: 03/03/25 16:28 History of Present Illness: Patient is a 60-year-old male who was drunk and sad because his dog . The dog was 26 years old and his best friend. He has not drank in months but today he decided to drink because he was sad about his dog. In his drunken state, he made statements such as I would like to . I might hang myself, and if I had a bowl in a gun I might shoot myself. He regrets saying these things and states that he has a strong lutheran conviction that if he were to kill himself he would not be able to go to [facility] thus he would never actually do it. He admits that the alcohol is affecting his speech. He has never been suicidal in the past nor has he harmed himself nor has he ever been diagnosed with any mental disease or taken any medications. Related Data Home Medications ?Medication ?Instructions ?Recorded ?Confirmed acetaminophen 500 mg tablet 1,000 mg PO QAM 12/22/22 0 01/29/25 aspirin 81 mg tablet,delayed 81 mg PO BEDTIME 12/22/22 01/29/25 release budesonide-formoterol HFA 160 2 puff inhalation BID 01/29/25 mcg-4.5 mcg/actuation aerosol inhaler (Symbicort) omeprazole 20 mg capsule,delayed 20 mg PO DAILY PRN Ac id Reflux 12/22/22 01/29/25 release nitroglycerin 0.4 mg sublingual 0.4 mg sublingual Q5M PRN Chest 12/11/24 01/29/25 tablet Pain Previous Rx's ?Medication ?Instructions ?Recorded albuterol sulfate 90 mcg/actuation 2 puff inhalation Q 4H PRN 12/11/24 aerosol inhaler Shortness Of Breath #8.5 gra ms isosorbide mononitrate 30 mg 30 mg PO DAILY #90 tabs 0 12/11/24 tablet,extended release 24 hr magnesium oxide 400 mg PO DAILY #90 caps 03/01 metoprolol succinate 25 mg 12.5 mg (1/2 x 25 mg) PO DA TRISH #45 12/11/24 tablet,extended release 24 hr tabs rosuvastatin 20 mg tablet 20 mg PO DAILY #90 tabs 03/01 Allergies Allergy/AdvReac Type Severity Reaction Status Date / Time carisoprodol (From [facility]) Allergy Mild ALGY-Rash Verified 12/11/24 13:49 PFS ED 2 PFSH: Medical History (Updated 03/03/25 @ 17:34 by Justo Hernandez MD) Hypertension Family History (Updated 12/11/24 @ 08:37 by Tri Mendoza LPN) Mother Breast cancer Father Cancer Social History (Updated 12/11/24 @ 13:55 by Agnes Prasad RN) Smoking and tobacco/nicotine status: current every day tobacco/nicotine user Alcohol intake: current Substance/Drug Use: current Physical Exam 2 Const: COMMON NORMALS: no acute distress, patient oriented x3 and alert HENMT: COMMON NORMALS: normocephalic and atraumatic HEAD & SCALP: n ormocephalic and atraumatic Eye: COMMON NORMALS: Equal, round and reactive pupils present, EOMs intact bilaterally and no scleral icterus PUPIL: Yes Equal, round and reactive pupils present Resp: COMMON NORMALS: normal respiratory effort and No retractions Cardio: COMMON NORMALS: regular rate, regular rhythm and No murmurs present (Cardio) RATE: regular rate RHYTHM: regular rhythm GI: COMMON NORMALS: Normal to inspection, nondistended, normoactive bowel sounds present, Soft to palpation and non-tender PALPATION: Yes Soft to palpation Neuro: COMMON NORMALS: patient oriented x3 SENSORIUM/ORIENTATION: Yes alert OTHER: Mildly slurred speech consistent with alcohol intoxication. Psych: OTHER: Admits to made several suicidal statements earlier in the day but now regrets them and does not feel that way. Skin: COMMON NORMALS: no rashes or lesions noted GENERAL SKIN EXAM: no rashes or lesions noted Course 2 Vital Signs: Vital signs: Vital Signs Temperature 97.6 F 03/03/25 16:19 Pulse Rate 92 03/03/25 17:48 Respiratory Rate 18 03/03/25 16:19 Blood Pressure 145/60 03/03/25 17:48 Pulse Oximetry 96 03/03/25 17:48 Oxygen Delivery Me thod Room Air 03/03/25 16:19 MDM - Psych Medical Decision Making In summary, patient is a well-appearing 60-year-old male seen for alcohol intoxication. He is remorseful that he made suicidal statements and repeatedly tells everyone who will listen that he does not want to . I actually believe him. I do not feel he would benefit from inpatient psychiatric care but needs to grieve the loss of his dog in a more sober way. His nephew who knows him well came to the hospital and agrees with this plan and does not feel that he poses a credible threat to himself. Nephew will help him stay away from alcohol. Patient knows that he is always welcome back in the emergency department if he truly feels that he might harm himself and I believe that he will come if so. He will be discharged in stable condition Lab Data 03/03/25 16:35 03/03/25 16:35 Laboratory Results WBC 9.17 10^3/uL (3.29-11.43) 03/03/25 16:35 RBC 5.57 10^6/uL (3.85-5.65) 03/03/25 16:35 Hgb 17.60 g/dL (11.27-16.99) H 03/03/25 16:35 Hct 52.9 % (37-53) 03/03/25 16:35 MCV 95.0 fl (82-101) 03/03/25 16:35 MCH 31.6 pg (27-33) 03/03/25 16:35 MCHC 33.3 g/dL (30-55) 03/03/25 16:35 RDW 13.7 % (12.1-15.1) 03/03/25 16:35 Plt Count 228 10^3/cmm (157-399) 03/03/25 16:35 MPV 9.0 fL (7.4-10.4) 03/03/25 16:35 Neut % (Auto) 59.3 % 03/03/25 16:35 Lymph % (Auto) 31.3 % 03/03/25 16:35 Ross % (Auto) 5.6 % 03/03/25 16:35 Eos % (Auto) 2.4 % 03/03/25 16:35 Baso % (Auto) 1.0 % 03/03/25 16:35 Neut # (Auto) 5.44 10^3/uL (1.8-7.7) 03/03/25 16:35 Lymph # (Auto) 2.9 10^3/uL (0.8-4.8) 03/03/25 16:35 Ross # (Auto) 0.5 10^3/uL (0.2-0.9) 03/03/25 16:35 Eos # (Auto) 0.2 10^3/uL (0.0-0.8) 03/03/25 16:35 Baso # (Auto) 0.1 10^3/uL (0.0-0.1) 03/03/25 16:35 Nucleated RBC % (auto) 0 % 03/03/25 16:35 Nucleated RBCs # 0.0 /100WBC 03/03/25 16:35 Sodium 138 mmol/L (136-145) 03/03/25 16:35 Potassium 3.9 mmol/L (3.5-5.1) 03/03/25 16:35 Chloride 104 mmol/L (98-107) 03/03/25 16:35 Carbon Dioxide 19 mmol/L (22-29) L 03/03/25 16:35 Anion Gap 18.9 (5-19) 03/03/25 16:35 BUN 18 mg/dL (8-23) 03/03/25 16:35 Creatinine 0.7 mg/dL (0.7-1.2) 03/03/25 16:35 GFR Calculation 114.6 mL/min (90-130) 03/03/25 16:35 Glucose 102 mg/dL (65-115) 03/03/25 16:35 Calculated Osmolality 288 mOsm/kg (285-295) 03/03/25 16:35 Calcium 8.9 mg/dL (8.5-10.5) 03/03/25 16:35 Total Bilirubin 0.4 mg/dL (0.15-1.2) 03/03/25 16:35 AST 31 U/L (0-40) 03/03/25 16:35 ALT 21 U/L (0-41) 03/03/25 16:35 Alkaline Phosphatase 126 U/L (40-130) 03/03/25 16:35 Total Protein 7.5 g/dL (6.6-8.7) 03/03/25 16:35 Albumin 4.1 g/dL (3.5-5.2) 03/03/25 16:35 Globulin 3.4 g/dL (1.3-4.6) 03/03/25 16:35 Salicylates < 0.3 mg/dL (3-10) L 03/03/25 16:35 Urine Opiates Screen Negative ng/mL (Negative) 03/03/25 16:57 Acetaminophen < 5.0 ug/mL (10-30) L 03/03/25 16:35 Ur Barbiturates Screen Negative ng/mL (Negative) 03/03/25 16:57 Ur Phencyclidine Scrn Negative ng/mL (Negative) 03/03/25 16:57 Ur Amphetamines Screen Positive ng/mL (Negative) H 03/03/25 16:57 U Benzodiazepines Scrn Negative ng/mL (Negative) 03/03/25 16:57 Urine Cocaine Screen Negative ng/mL (Negative) 03/03/25 16:57 U Marijuana (THC) Screen Negative ng/mL (Negative) 03/03/25 16:57 Ethyl Alcohol 343 mg/dL (0-10) H* 03/03/25 16:35 No radiology studies performed this visit Discharge Plan Discharge Patient Disposition: Home Clinical Impression: Alcohol intoxication Condition: Stable Prescriptions: No Action nitroglycerin 0.4 mg tablet, sublingual 0.4 mg sublingual Q5M PRN (Reason: Chest Pain) Rx Instructions: do not exceed 3 doses per episode metoprolol succinate 25 mg tablet extended release 24 hr 12.5 mg PO DAILY Qty: 45 3RF rosuvastatin 20 mg tablet 20 mg PO DAILY Qty: 90 3RF isosorbide mononitrate 30 mg tablet extended release 24 hr 30 mg PO DAILY Qty: 90 3RF magnesium oxide 400 mg magnesium capsule 400 mg PO DAILY Qty: 90 3RF albuterol sulfate 90 mcg/actuation HFA aerosol inhaler 2 puff INHALATION Q4H PRN (Reason: Shortness Of Breath) Qty: 8.5 0RF aspirin [Aspir-81] 81 mg Tablet,Delayed Release (Dr/Ec) 81 mg PO BEDTIME acetaminophen [Tylenol Ex Str Rapid Release] 500 mg Tablet 1,000 mg PO QAM omeprazole 20 mg capsule,delayed release(DR/EC) 20 mg PO DAILY PRN (Reason: Acid Reflux) budesonide-formoterol [Symbicort] 160-4.5 mcg/actuation HFA aerosol inhaler 2 puff INHALATION BID Discharge Orders: Discharge ED (Routine); Ordered 03/03/25 Ordered By: Justo Hernandez Referrals: Gabino Rodriguez MD [Primary Care Provider] - Discharge Diet: Advance as tolerated Discharge Activity: Resume usual activity Patient Instructions: Alcohol Intoxication (ED) Print Language: Portuguese Coding Level of Care Code ED Product Support Engineer for [employer]
== END 2025-03-03 17:49 | disposition home or self-care (01) ==
PROVIDERS: Physician Assistant; Emergency Provider Student in an Organized Health Care Education/Training Program; PCP Family Medicine
DX: F10.129 Alcohol abuse with intoxication, unspecified (principal); Y90.8 Blood alcohol level of 240 mg/100 ml or more; Z79.82 Long term (current) use of aspirin; Z72.0 Tobacco use; I10 Essential (primary) hypertension
CPT/HCPCS: 80053; 80306; 80307; 85025; 99283

== ENCOUNTER → 2025-06-18 13:26 | Outpatient (BNVA) | payer MEDICARE, SELFPAY | PROVIDERS: PCP Family Medicine; Visit Provider Internal Medicine Cardiovascular Disease | DX: I25.10 Atherosclerotic heart disease of native coronary artery without angina pectoris (principal); I10 Essential (primary) hypertension; R07.89 Other chest pain; F17.200 Nicotine dependence, unspecified, uncomplicated | CPT/HCPCS: 99214 ==